=== PATIENT | male | born 1980 | race African-American/Black ===

== ENCOUNTER 2018-11-26 10:13 | Observation (INO) | payer OTHER ==
[2018-11-26] MEDS: KETOROLAC 30 MG INJ IM (11:27)
[2018-11-26] MEDS: SOD CHLORIDE 0.9% 1,000 ML IV (11:27)
[2018-11-26 11:36] LABS: ADD MAN DIFF? NO
[2018-11-26 11:40] LABS: WHITE BLOOD COUNT 8.2 10^3/ul (4.8-10.8)
[2018-11-26 11:40] LABS: BASOPHILS % 0.5 % (0.0-2.0); EOSINOPHILS % 0.1 % (0.0-7.0); HEMATOCRIT 46.2 % (42.0-52.0); HEMOGLOBIN 15.3 g/dl (14.0-18.0); LYMPHOCYTES # 1.2 10^3/ul (0.8-2.9); MEAN CORPUSCULAR HEMOGLOBIN 31.2 pg (29.0-33.0); MEAN CORPUSCULAR HGB CONC 33.1 g/dl (32.0-37.0); MEAN CORPUSCULAR VOLUME 94.3 fl (82.0-101.0); MONOCYTE # 1.1 10^3/ul (0.3-0.9); MONOCYTES % 12.9 % (0.0-11.0); NEUTROPHIL # 5.9 10^3/ul (1.6-7.5); NEUTROPHILS % 71.3 % (39.0-77.0); PLATELET COUNT 209 10^3/UL (140-415); RED CELL DISTRIBUTION WIDTH 12.6 % (11.5-14.5)
[2018-11-26 12:02] LABS: ANION GAP 8 (5-13); BLOOD UREA NITROGEN 13 mg/dl (7-20); CALCIUM 9.5 mg/dl (8.4-10.2); CARBON DIOXIDE 30 mmol/L (21-31); CHLORIDE 99 mmol/L (97-110); CREATININE 1.13 mg/dl (0.61-1.24); Estimated GFR > 60 mL/min (>60); GLUCOSE 102 mg/dl (70-220); POTASSIUM 3.6 mmol/L (3.5-5.1); SODIUM 137 mmol/L (135-144)
[2018-11-26 12:05] LABS: INR 1.01; PARTIAL THROMBOPLASTIN TIME 28.8 Sec (23.0-35.0); PROTIME 13.4 Sec (11.9-14.9)
[2018-11-26] MEDS ORDERED: ALBUTEROL 0.083% (NEB) 2.5 MG/3 ML AMP HHN (16:30)
[2018-11-26] MEDS ORDERED: DIPHENHYDRAMINE 50 MG INJ IV (16:30)
[2018-11-26] MEDS ORDERED: FENTAnyl 50 MCG/ML VIAL IV ×2 (16:30)
[2018-11-26] MEDS ORDERED: HYDROmorphONE 1 MG/5 ML IV SYRINGE IV ×3 (16:30)
[2018-11-26] MEDS ORDERED: METOCLOPRAMIDE 10 MG INJ IV (16:30)
[2018-11-26] MEDS: ONDANSETRON 4 MG INJ IV (17:45)
[2018-11-26] MEDS: MEPERIDINE 25 MG INJ IV (17:45)
[2018-11-26] MEDS: HYDROCODONE/APAP (5/325) TAB PO (20:57)
[2018-11-27] MEDS: HYDROCODONE/APAP (5/325) TAB PO ×4 (02:58→22:01)
[2018-11-27] MEDS ORDERED: ONDANSETRON 4 MG INJ IV (13:00)
[2018-11-27] MEDS ORDERED: ACETAMINOPHEN 325 MG TAB PO (13:00)
[2018-11-28] MEDS: HYDROCODONE/APAP (5/325) TAB PO ×2 (04:23→10:22)
[2018-11-28] MEDS: DOCUSATE SODIUM 100 MG CAP PO (11:28)
== END 2018-11-28 13:45 | disposition home or self-care (01) ==
LOC: E/R 10:13 → MS1 17:27
DX: S42.251A Displaced fracture of greater tuberosity of right humerus, initial encounter for closed fracture (principal); Y04.0XXA Assault by unarmed brawl or fight, initial encounter
CPT/HCPCS: 23665; 36415; 71045; 73030-RT; 73060-RT; 73200; 80048; 85025; 85610; 85730; 96372; 99285-25